=== PATIENT | female | born 1975 | race African-American/Black ===

== ENCOUNTER 2018-05-31 23:08 | Emergency (ER) | payer OTHER ==
[2018-05-31 23:17] VITALS: BP 146/77; PULSE 95; TEMP 98.6; BMI 49.1
--- NOTE | 2018-06-01 00:02 | PDOC ---
*Physical Exam - Vital Signs Last Vital Signs Temp Pulse Resp BP Pulse Ox 98.6 F 95 H 18 146/77 100 05/31/18 23:14 05/31/18 23:14 05/31/18 23:14 05/31/18 23:14 05/31/18 23:14 Medical Decision Making - Medical Decision Making 06/01/18 00:02 Patient seen by the advanced practice provider under my direct supervision. Ancillary testing reviewed as necessary. I agree with plan as outlined by the advanced practice provider. *DC/Admit/Observation/Transfer Diagnosis at time of Disposition: Chest wall pain - Referrals Referrals: Raji Montoya MD [Primary Care Provider] - - Patient Instructions - Post Discharge Activity
[2018-06-01] MEDS ORDERED: predniSONE 20 MG TABLET (UD) PO ONE (00:18)
[2018-06-01] MEDS ORDERED: IBUPROFEN 400 MG TABLET (FP) PO ONE ×2 (00:19→00:49)
[2018-06-01] MEDS ORDERED: predniSONE 20 MG TABLET (UD) ONE (00:49)
[2018-06-01] MEDS ORDERED: ALBUTEROL SO4 2.5/IPRATROPIUM 0.5 INH SOL 3 ML VIAL.NEB. NEB ONE (00:49)
[2018-06-01] MEDS: ALBUTEROL SO4 2.5/IPRATROPIUM 0.5 INH SOL 3 ML VIAL.NEB. NEB SCH (01:01)
--- NOTE | 2018-06-01 01:10 | PDOC ---
History of Present Illness - General Chief Complaint: Asthma Stated Complaint: DIFFICULT BREATHING Time Seen by Provider: 05/31/18 23:55 History Source: Patient Exam Limitations: No Limitations Past History - Past Medical History Allergies/Adverse Reactions: Allergies Allergy/AdvReac Type Severity Reaction Status Date / Time No Known Allergies Allergy Verified 05/31/18 23:17 Home Medications: Ambulatory Orders No Home Meds 04/21/11 Prednisone [Deltasone] 40 mg PO DAILY #8 tablet 06/01/18 Asthma: Yes COPD: No HTN: Yes - Suicide/Smoking/Psychosocial Hx Smoking Status: No Smoking History: Never smoked Have you smoked in the past 12 months: No Number of Cigarettes Smoked Daily: 0 Information on smoking cessation initiated: No Hx Alcohol Use: No Drug/Substance Use Hx: No *Physical Exam - Vital Signs Last Vital Signs Temp Pulse Resp BP Pulse Ox 98.6 F 95 H 18 146/77 100 05/31/18 23:14 05/31/18 23:14 05/31/18 23:14 05/31/18 23:14 05/31/18 23:14 - Physical Exam General Appearance: No: Apparent Distress Respiratory/Chest: positive: Chest Tender (+L anterior chest wall tenderness), Lungs Clear, Normal Breath Sounds. negative: Respiratory Distress Cardiovascular: positive: Regular Rhythm, Regular Rate, S1, S2. negative: Murmur Gastrointestinal/Abdominal: positive: Normal Bowel Sounds, Soft. negative: Tender, Distended, Guarding, Rebound Extremity: positive: Normal Inspection. negative: Pedal Edema, Calf Tenderness Neurologic: positive: Fully Oriented, Alert, Normal Mood/Affect Moderate Sedation - Procedure Monitoring Vital Signs: Procedure Monitoring Vital Signs Temperature 98.6 F 05/31/18 23:14 Pulse Rate 95 H 05/31/18 23:14 Respiratory Rate 18 05/31/18 23:14 Blood Pressure 146/77 05/31/18 23:14 O2 Sat by Pulse Oximetry (%) 100 05/31/18 23:14 ED Treatment Course - LABORATORY CBC & Chemistry Diagram: 06/01/18 02:42 06/01/18 02:42 - RADIOLOGY Radiology Studies Ordered: Category Date Time Status CHEST PA & LAT [RAD] Stat Radiology 06/01/18 00:19 Ordered Medical Decision Making - Medical Decision Making 43 y/o F nonsmoker hx of asthma (never intubated, never hospitalized), HTN presents with SOB and chest tightness from today along with mild dry cough. Tried using Albuterol without much help. States sxs feel like asthma, though has not had asthma attack in a while. Unsure of what precipitated this; denies recent URI. Denies fever, recent travel, use of OCPs, abd pain, n/v, calf swelling Asthma exacerbation? also consider costochondritis given reproducible CP PERC negative Plan: duonebs, prednisone, motrin, cxr, EKG, reassess 06/01/18 01:01 CXR negative EKG showed NSR at 77 bpm, T wave flattening aVL Patient mentions feeling slightly better after meds given, but still having some chest pain Will get labs to further assess 06/01/18 02:38 Labs unremarkable other than mild hypokalemia (K 3.3) - likely from duonebs given Potassium repleted Incidental anemia noted - advised f/u with PCP 06/01/18 03:47 *DC/Admit/Observation/Transfer Diagnosis at time of Disposition: Costochondritis Asthma Qualifiers: Asthma severity: mild Asthma persistence: unspecified Asthma complication type : with acute exacerbation Qualified Code(s): J45.901 - Unspecified asthma with ( acute) exacerbation - Discharge Dispostion Disposition: HOME Condition at time of disposition: Improved Decision to Admit order: No - Prescriptions Prescriptions: Prednisone [Deltasone] 40 mg PO DAILY #8 tablet - Referrals Referrals: Raji Montoya MD [Primary Care Provider] - 2 Days - Patient Instructions Printed Discharge Instructions: Asthma -- Adult, DI for Costochondritis Additional Instructions: Thank you for choosing [facility]. It was a pleasure taking care of you. You were noticed to have incidental anemia - follow-up with your doctor regarding this Use albuterol as needed for shortness of breath/chest tightness Also take the Prednisone as prescribed Follow-up with your PCP in 2-3 days Return to the Emergency Department if your symptoms worsen or persist or have other concerning symptoms. - Post Discharge Activity
[2018-06-01 02:57] LABS: BASO % 0.5 % (0-2.0); EOS % 0.1 % (0-4.5); HEMATOCRIT 31.5 % (32.4-45.2); HEMOGLOBIN 10.5 GM/dL (10.7-15.3); LYMPH % 13.2 % (8-40); MCH 25.3 pg (25.7-33.7); MCHC 33.2 g/dl (32.0-36.0); MEAN CELL VOLUME 76.2 fl (80-96); MEAN PLT VOLUME 7.2 fl (7.5-11.1); MONO % 3.7 % (3.8-10.2); NEUT % 82.5 % (42.8-82.8); PLATELET COUNT 407 K/MM3 (134-434); RBC 4.14 M/mm3 (3.60-5.2); RDW 20.1 % (11.6-15.6); WHITE BLOOD COUNT 11.1 K/mm3 (4.0-10.0)
[2018-06-01 03:30] LABS: ANION GAP 7 MMOL/L (8-16); BLOOD UREA NITROGEN 12 mg/dL (7-18); CHLORIDE 105 mmol/L (98-107); CO2 29 mmol/L (21-32); CREATININE 0.8 mg/dL (0.55-1.3); GLUCOSE,RANDOM 186 mg/dL (74-106); POTASSIUM 3.3 mmol/L (3.5-5.1); SODIUM 140 mmol/L (136-145)
[2018-06-01] MEDS ORDERED: POTASSIUM CHLORIDE ORAL LIQUID 20 MEQ/15 ML PO ONE (03:42)
[2018-06-01] MEDS ORDERED: POTASSIUM CHLORIDE ORAL LIQUID 20 MEQ/15 ML ONE (04:48)
--- NOTE | 2018-06-01 14:01 | EKG ---
Test Reason : Blood Pressure : / mmHG Vent. Rate : 077 BPM Atrial Rate : 077 BPM P-R Int : 178 ms QRS Dur : 090 ms QT Int : 398 ms P-R-T Axes : 057 055 059 degrees QTc Int : 450 ms NORMAL SINUS RHYTHM NORMAL ECG NO PREVIOUS ECGS AVAILABLE Confirmed by TYSON SORTO MD ([id number]) on 06/01/2018 2:01:06 PM Referred By: Confirmed By:TYSON SORTO MD
== END 2018-06-01 04:58 | disposition home or self-care (01) ==
LOC: JER 23:08
PROC: 3E0F7GC Introduction of Other Therapeutic Substance into Respiratory Tract, Via Natural or Artificial Opening (ICD-10-PCS; principal; 2018-05-31)
DX: J45.901 Unspecified asthma with (acute) exacerbation (principal); M94.0 Chondrocostal junction syndrome [Tietze]; R07.9 Chest pain, unspecified; D64.9 Anemia, unspecified; I10 Essential (primary) hypertension
CPT/HCPCS: 36415; 71046-TC-FY; 80048; 84484; 85025; 93005; 93010; 99281-25

== ENCOUNTER 2024-01-15 20:25 | Inpatient (IN) | payer OTHER ==
[2024-01-15] MEDS ORDERED: FAMOTIDINE 20 MG TABLET ONE (21:01)
[2024-01-15] MEDS ORDERED: ACETAMINOPHEN INJECTION 100 ML ONE (21:02)
[2024-01-15] MEDS ORDERED: SUCRALFATE 1 GM TABLET (FP) ONE (21:02)
[2024-01-15] MEDS ORDERED: MAG HYDROX/AL HYDROX/SIMETH 30 ML UNIT-DOSE CUP ONE (21:02)
[2024-01-15] MEDS: MAG HYDROX/AL HYDROX/SIMETH 30 ML UNIT-DOSE CUP PO ONE (21:20)
[2024-01-15] MEDS: SUCRALFATE 1 GM TABLET (FP) PO ONE (21:20)
[2024-01-15] MEDS: ACETAMINOPHEN 1000 MG/100 ML BAG IVPB ONE (21:20)
[2024-01-15] MEDS: FAMOTIDINE 10 MG TABLET PO ONE (21:20)
[2024-01-15 21:24] LABS: BASO % 0.3 % (0-2.0); EOS % 0.1 % (0-4.5); HEMATOCRIT 28.7 % (32.4-45.2); HEMOGLOBIN 8.7 GM/dL (10.7-15.3); LYMPH % 11.8 % (8-40); MCHC 30.3 g/dl (32.0-36.0); MEAN CELL VOLUME 65.3 fl (80-96); MEAN PLT VOLUME 6.9 fl (7.5-11.1); MONO % 3.4 % (3.8-10.2); NEUT % 84.4 % (42.8-82.8); PLATELET COUNT 488 10^3/uL (134-434); RDW 19.1 % (11.6-15.6); WHITE BLOOD COUNT 15.2 K/mm3 (4.0-10.0)
[2024-01-15 21:37] LABS: MCH 19.8 pg (25.7-33.7)
[2024-01-15 21:43] LABS: POTASSIUM 3.8 mmol/L (3.5-5.1)
[2024-01-15 21:45] LABS: ALBUMIN 3.5 g/dl (3.4-5.0); BLOOD UREA NITROGEN 11.5 mg/dL (7-18); CALCIUM 8.8 mg/dL (8.5-10.1)
[2024-01-15 21:50] LABS: BILIRUBIN,TOTAL 0.3 mg/dL (0.2-1); TOT PROT 7.9 g/dl (6.4-8.2)
[2024-01-15 22:04] LABS: EPI CELLS 19 /uL (0-25.1); HYALINE CASTS 1 /uL (0-3.1); URINE APPEARANCE CLEAR; URINE BACTERIA 104 /uL (0-1359); URINE BILIRUBIN NEGATIVE (NEGATIVE); URINE COLOR YELLOW; URINE GLUCOSE (UA) NEGATIVE (NEGATIVE); URINE KETONE NEGATIVE (NEGATIVE); URINE LEUK ESTERASE NEGATIVE (NEGATIVE); URINE NITRITE NEGATIVE (NEGATIVE); URINE PROTEIN 1+ (NEGATIVE); URINE RBC 7 /uL (0-23.9); URINE UROBILINOGEN 0.2 mg/dL (0.2-1.0); URINE WBC 13 /uL (0-25.8)
[2024-01-15 22:16] LABS: ANISOCYTOSIS 2+; MACROCYTOSIS 0
[2024-01-15] MEDS: SODIUM CHLORIDE 0.9% 1000 ML INFUS.BAG IV ONE (23:21)
[2024-01-16] MEDS ORDERED: KETOROLAC TROMETHAMINE 30 MG/1 ML VIAL ONE (01:36)
[2024-01-16] MEDS: KETOROLAC TROMETHAMINE 30 MG/1 ML VIAL IVPUSH ONE (01:40)
[2024-01-16] MEDS ORDERED: MORPHINE SULFATE 2 MG/ML SYRINGE ONE ×3 (05:10→20:27)
[2024-01-16] MEDS: LACTATED RINGERS SOLUTION 1,000 ML/1,000 ML INFUS.BAG IV SCH (05:15)
[2024-01-16] MEDS: MORPHINE SULFATE 2 MG/ML SYRINGE IVPUSH PRN (05:16)
[2024-01-16] MEDS ORDERED: ACETAMINOPHEN INJECTION 100 ML ONE ×2 (09:18→14:08)
[2024-01-16] MEDS: ACETAMINOPHEN 1000 MG/100 ML BAG IVPB PRN (09:23)
[2024-01-16] MEDS: ENOXAPARIN NA (PORCINE) 40 MG/0.4 ML DISP.SYRIN SQ SCH (09:48)
[2024-01-16 11:07] LABS: POTASSIUM 3.3 mmol/L (3.5-5.1)
[2024-01-16 11:09] LABS: CALCIUM 8.5 mg/dL (8.5-10.1)
[2024-01-16 11:10] LABS: ALBUMIN 3.3 g/dl (3.4-5.0); BLOOD UREA NITROGEN 7.8 mg/dL (7-18); MAGNESIUM 2.1 mg/dL (1.8-2.4)
[2024-01-16 11:12] LABS: CHOLESTEROL 162 mg/dL (50-200)
[2024-01-16 11:13] LABS: CREATININE 0.7 mg/dL (0.55-1.3); LDL CHOLESTEROL (ONLY SJRH) 93 mg/dL (5-100); PHOSPHOROUS 3.3 mg/dL (2.5-4.9)
[2024-01-16 11:14] LABS: BILIRUBIN,TOTAL 0.4 mg/dL (0.2-1); TOT PROT 7.2 g/dl (6.4-8.2)
[2024-01-16 11:15] LABS: HDL CHOLESTEROL 60 mg/dL (40-60)
[2024-01-16] MEDS ORDERED: amLODIPine BESYLATE 5 MG TABLET (FP) ONE (14:08)
[2024-01-16] MEDS: amLODIPine BESYLATE 5 MG TABLET (FP) PO SCH (14:15)
[2024-01-16] MEDS ORDERED: KCL 10 MEQ IVPB 10 MEQ/100 ML INFUS.BAG IVPB ONE (15:14)
[2024-01-16] MEDS: IRON SUCROSE INJECTION 200 MG in SODIUM CHLORIDE 100 ML IVPB ONE (15:57)
[2024-01-16] MEDS: KCL 10 MEQ IVPB 10 MEQ/100 ML INFUS.BAG IVPB SCH (17:11)
[2024-01-16] MEDS ORDERED: LOSARTAN POTASSIUM 50 MG TABLET ONE (18:34)
[2024-01-16] MEDS: D5-1/2NS+20 MEQ KCL - 20 MEQ/1,000 ML INFUS.BAG IV SCH (18:43)
[2024-01-16] MEDS: LOSARTAN POTASSIUM 50 MG TABLET PO SCH (18:43)
[2024-01-16] MEDS ORDERED: ENOXAPARIN NA (PORCINE) 40 MG/0.4 ML DISP.SYRIN SQ ONE (23:19)
[2024-01-17 08:14] VITALS: BMI 49.4
[2024-01-17 09:21] LABS: BASO % 0.3 % (0-2.0); EOS % 0.5 % (0-4.5); HEMATOCRIT 28.3 % (32.4-45.2); HEMOGLOBIN 8.6 GM/dL (10.7-15.3); LYMPH % 18.6 % (8-40); MCHC 30.4 g/dl (32.0-36.0); MEAN CELL VOLUME 65.7 fl (80-96); MEAN PLT VOLUME 7.4 fl (7.5-11.1); NEUT % 76.6 % (42.8-82.8); PLATELET COUNT 465 10^3/uL (134-434); RBC 4.31 M/mm3 (3.60-5.2); RDW 18.8 % (11.6-15.6); WHITE BLOOD COUNT 11.2 K/mm3 (4.0-10.0)
[2024-01-17 09:24] LABS: MCH 19.9 pg (25.7-33.7)
[2024-01-17 09:34] LABS: POTASSIUM 3.9 mmol/L (3.5-5.1)
[2024-01-17 09:38] LABS: ALBUMIN 3.5 g/dl (3.4-5.0); CALCIUM 8.9 mg/dL (8.5-10.1)
[2024-01-17 09:39] LABS: BLOOD UREA NITROGEN 6.4 mg/dL (7-18)
[2024-01-17 09:41] LABS: CREATININE 0.7 mg/dL (0.55-1.3)
[2024-01-17 09:43] LABS: BILIRUBIN,TOTAL 0.3 mg/dL (0.2-1); TOT PROT 7.9 g/dl (6.4-8.2)
[2024-01-17] MEDS: IRON SUCROSE INJECTION 200 MG in SODIUM CHLORIDE 100 ML IVPB ONE (10:54)
[2024-01-17] MEDS ORDERED: D5-1/2NS+20 MEQ KCL - 20 MEQ/1,000 ML INFUS.BAG IV SCH (13:24)
[2024-01-17] MEDS: ACETAMINOPHEN 325 MG TABLET (FP) PO PRN (15:21)
[2024-01-17] MEDS: D5-1/2NS+20 MEQ KCL - 20 MEQ/1,000 ML INFUS.BAG IV SCH (15:51)
[2024-01-17] MEDS: LOSARTAN POTASSIUM 50 MG TABLET PO SCH (21:45)
[2024-01-18 07:12] LABS: INR 1.15 (0.83-1.09); PROTHROMBIN TIME (PATIENT) 12.9 SEC (9.7-13.0)
[2024-01-18 07:16] LABS: BASO % 0.3 % (0-2.0); EOS % 0.6 % (0-4.5); HEMATOCRIT 27.6 % (32.4-45.2); HEMOGLOBIN 8.3 GM/dL (10.7-15.3); LYMPH % 18.3 % (8-40); MCHC 30.1 g/dl (32.0-36.0); MEAN CELL VOLUME 66.4 fl (80-96); MEAN PLT VOLUME 7.2 fl (7.5-11.1); MONO % 5.6 % (3.8-10.2); NEUT % 75.2 % (42.8-82.8); PLATELET COUNT 441 10^3/uL (134-434); RBC 4.15 M/mm3 (3.60-5.2); RDW 19.3 % (11.6-15.6)
[2024-01-18 07:34] LABS: POTASSIUM 3.5 mmol/L (3.5-5.1)
[2024-01-18 07:40] LABS: CALCIUM 8.7 mg/dL (8.5-10.1)
[2024-01-18 07:41] LABS: ALBUMIN 3.4 g/dl (3.4-5.0); BLOOD UREA NITROGEN 4.8 mg/dL (7-18)
[2024-01-18 07:44] LABS: CREATININE 0.7 mg/dL (0.55-1.3)
[2024-01-18 07:45] LABS: BILIRUBIN,TOTAL 0.3 mg/dL (0.2-1); TOT PROT 7.4 g/dl (6.4-8.2)
[2024-01-18] MEDS: IRON SUCROSE INJECTION 200 MG in SODIUM CHLORIDE 100 ML IVPB ONE (11:34)
[2024-01-18] MEDS: POLYETHYLENE GLYCOL (HEALTHYLAX) 3350 17 GM PACKET PO SCH (11:35)
[2024-01-19] MEDS: PEG 3350/NA SULF BICARB CL/KCL 4000 ML SOLN.RECON PO ONE (09:16)
[2024-01-19] MEDS: BISACODYL 5 MG TABLET.DR (FP) PO ONE (20:21)
[2024-01-20 07:33] LABS: BASO % 0.3 % (0-2.0); EOS % 0.4 % (0-4.5); HEMATOCRIT 26.6 % (32.4-45.2); HEMOGLOBIN 8.3 GM/dL (10.7-15.3); LYMPH % 23.5 % (8-40); MCH 20.9 pg (25.7-33.7); MCHC 31.3 g/dl (32.0-36.0); MEAN CELL VOLUME 66.7 fl (80-96); MEAN PLT VOLUME 7.4 fl (7.5-11.1); MONO % 6.1 % (3.8-10.2); NEUT % 69.7 % (42.8-82.8); PLATELET COUNT 450 10^3/uL (134-434); RBC 3.99 M/mm3 (3.60-5.2); RDW 18.5 % (11.6-15.6); WHITE BLOOD COUNT 9.7 K/mm3 (4.0-10.0)
[2024-01-20 07:51] LABS: INR 1.16 (0.83-1.09); PROTHROMBIN TIME (PATIENT) 13.3 SEC (9.7-13.0)
[2024-01-20 07:53] LABS: POTASSIUM 4.2 mmol/L (3.5-5.1)
[2024-01-20 08:06] LABS: CALCIUM 8.2 mg/dL (8.5-10.1)
[2024-01-20 08:07] LABS: ALBUMIN 3.3 g/dl (3.4-5.0); BLOOD UREA NITROGEN 3.7 mg/dL (7-18)
[2024-01-20 08:10] LABS: CREATININE 0.8 mg/dL (0.55-1.3)
[2024-01-20 08:11] LABS: BILIRUBIN,TOTAL 0.4 mg/dL (0.2-1); TOT PROT 7.3 g/dl (6.4-8.2)
[2024-01-20 09:21] LABS: ANISOCYTOSIS 0; MACROCYTOSIS 0
[2024-01-20] MEDS ORDERED: KETAMINE HCL 200 MG/20 ML VIAL ONE (15:10)
[2024-01-21 05:28] VITALS: TEMP 98.2
[2024-01-21 10:43] VITALS: BP 139/75; PULSE 75; RESP 18
== END 2024-01-21 13:00 | disposition home or self-care (01) | DRG 282 ==
LOC: JER 20:25 → JERBED 01-16 03:27 → OBSVTOIN 01-16 15:01 → J4W 01-17 06:01
PROVIDERS: ADMIT Internal Medicine; ATTEND Family Medicine
PROC: 0DB98ZX Excision of Duodenum, Via Natural or Artificial Opening Endoscopic, Diagnostic (ICD-10-PCS; 2024-01-20)
PROC: 0DB68ZX Excision of Stomach, Via Natural or Artificial Opening Endoscopic, Diagnostic (ICD-10-PCS; 2024-01-20)
PROC: 0DJD8ZZ Inspection of Lower Intestinal Tract, Via Natural or Artificial Opening Endoscopic (ICD-10-PCS; principal; 2024-01-20 15:20)
DX: K85.90 Acute pancreatitis without necrosis or infection, unspecified (principal); I24.89 Other forms of acute ischemic heart disease; E66.01 Morbid (severe) obesity due to excess calories; Z68.42 Body mass index [BMI] 45.0-49.9, adult; D50.9 Iron deficiency anemia, unspecified; I10 Essential (primary) hypertension; J45.909 Unspecified asthma, uncomplicated; K57.90 Diverticulosis of intestine, part unspecified, without perforation or abscess without bleeding; K64.8 Other hemorrhoids; K21.9 Gastro-esophageal reflux disease without esophagitis; K29.50 Unspecified chronic gastritis without bleeding
CPT/HCPCS: 36415; 71045-TC-FY; 74177-TC; 76705-TC; 80053; 80061; 81003; 82272; 82728; 83540; 83550; 83690; 83735; 84100; 84443; 84478; 84484; 84703; 85025; 85045; 85610; 86850; 86900; 86901; 87086; 88305-TC; 88342-TC; 93005; 93010; 93306-TC; 99285-25; G0378; J0131; J1756